=== PATIENT | male | born 1995 | race American Indian/Alaskan Native ===

== ENCOUNTER 2016-09-24 17:20 | Emergency (ER) | payer SELFPAY ==
[2016-09-24] MEDS ORDERED: PROVENTIL IH ONE ×2 (20:54→20:56)
[2016-09-24] MEDS ORDERED: DUONEB 0.5 MG-3 MG/3 ML SOLN IH ONE (20:56)
[2016-09-24] MEDS ORDERED: DECADRON IM ONE (20:56)
--- NOTE | 2016-09-24 21:11 | Emergency Department Report ---
ED Asthma HPI - General Chief Complaint: Upper Respiratory Infection Stated Complaint: NAUSEA/DIZZINESS/FATIGUE Time Seen by Provider: 09/24/16 20:49 Source: patient Mode of arrival: Ambulatory Limitations: No Limitations - History of Present Illness Initial Comments: Patient is a 20-year-old male presents to ED with complaints of shortness of breath, wheezing, cough for the past few days. Patient reports that he feels like his asthma is getting worse because of the pollen. Patient reports that he has breathing machine at home which she has been using without much relief. Relates that he does not have a albuterol inhaler and he may need that. Patient states right now he feels fine but when he goes outside, he begins to have more shortness of breath and wheezing due to pollen. MD Complaint: wheezing Onset/Timin -: Gradual, days(s) Severity: moderate Context: ran out of meds, allergen exposure Associated Symptoms: productive cough (yellow sputum ). denies: dry cough, chest pain, hemoptysis Treatments Prior to Arrival: inhaled bronchodilator - Related Data Previous Rx's Medication Instructions Recorded Last Taken Type ALBUTEROL Inhaler [ProAir HFA 2 puff IH QID PRN #1 inhalation 09/24/16 Unknown Rx Inhaler] Fluticasone [Flonase] 1 spray NS QDAY #1 bottle 09/24/16 Unknown Rx Loratadine 10 mg PO DAILY #30 tablet 09/24/16 Unknown Rx Allergies Allergy/AdvReac Type Severity Reaction Status Date / Time No Known Allergies Allergy Verified 09/24/16 18:16 ED Review of Systems ROS: Stated complaint: NAUSEA/DIZZINESS/FATIGUE Other details as noted in HPI Constitutional: denies: chills, fever Eyes: denies: eye pain, eye discharge, vision change ENT: denies: ear pain, throat pain Respiratory: cough, shortness of breath, wheezing Cardiovascular: denies: chest pain, palpitations Neurological: denies: headache, weakness, paresthesias Psychiatric: denies: anxiety, depression ED Past Medical Hx - Past Medical History Hx Psychiatric Treatment: Yes (ADHD) Hx Asthma: Yes - Surgical History Past Surgical History?: No - Social History Smoking Status: Current Every Day Smoker Substance Use Type: Alcohol - Medications Home Medications: Home Medications Medication Instructions Recorded Confirmed Last Taken Type ALBUTEROL Inhaler [ProAir HFA 2 puff IH QID PRN #1 inhalation 09/24/16 Unknown Rx Inhaler] Fluticasone [Flonase] 1 spray NS QDAY #1 bottle 09/24/16 Unknown Rx Loratadine 10 mg PO DAILY #30 tablet 09/24/16 Unknown Rx ED Physical Exam - General Limitations: No Limitations General appearance: alert, in no apparent distress - Head Head exam: Present: atraumatic, normocephalic - Eye Eye exam: Present: normal appearance - ENT ENT exam: Present: mucous membranes moist - Respiratory Respiratory exam: Present: normal lung sounds bilaterally, wheezes. Absent: respiratory distress, rales, rhonchi, stridor, chest wall tenderness, accessory muscle use, decreased breath sounds, prolonged expiratory - Cardiovascular Cardiovascular Exam: Present: regular rate, normal rhythm. Absent: systolic murmur, diastolic murmur, rubs, gallop - Neurological Exam Neurological exam: Present: alert, oriented X3 - Psychiatric Psychiatric exam: Present: normal affect, normal mood ED Course Vital Signs 09/24/16 09/24/16 09/24/16 18:22 21:37 22:09 Temperature 98.7 F Pulse Rate 54 L Pulse Rate [ 64 59 L Anterior Bilateral] Respiratory 18 Rate Respiratory 18 18 Rate [Anterior Bilateral] Blood Pressure 155/108 O2 Sat by Pulse 100 Oximetry ED Medical Decision Making - Medical Decision Making Patient is resting comfortably. Wheezing is better s/p breathing treatment. Will start patient on prednisone, Flonase, albuterol inhaler. Advised to return to ED for worsening symptoms or may follow with PCP in 2-3 days. Blood pressure noted to be a little elevated. Advised patient to keep recording the BP 2 or 3 times aweek and follow upw ith a PCP regarding it. - Differential Diagnosis asthma exacerbation, URI, bronchitis, postnasal drip. Critical care attestation.: If time is entered above; I have spent that time in minutes in the direct care of this critically ill patient, excluding procedure time. ED Disposition Clinical Impression: Asthma Qualifiers: Asthma severity: moderate persistent Asthma complication type: with acute exacerbation Qualified Code(s): J45.41 - Moderate persistent asthma with (acute ) exacerbation Disposition: DISCHARGED TO HOME OR SELFCARE Is pt being admited?: No Does the pt Need Aspirin: No Condition: Stable Instructions: Asthma (ED), Asthma in Children (ED) Prescriptions: ALBUTEROL Inhaler [ProAir HFA Inhaler] 2 puff IH QID PRN #1 inhalation PRN Reason: Shortness Of Breath Fluticasone [Flonase] 1 spray NS QDAY #1 bottle Loratadine 10 mg PO DAILY #30 tablet Referrals: PRIMARY CARE, [Primary Care Provider] - 3-5 Days Time of Disposition: 22:42
[2016-09-24] MEDS ORDERED: ATROVENT IH ONE ×3 (21:29→21:33)
[2016-09-24 22:53] VITALS: BP 151/97
== END 2016-09-24 22:51 | disposition home or self-care (01) ==
LOC: ED 17:20
DX: J45.41 Moderate persistent asthma with (acute) exacerbation (principal); F17.200 Nicotine dependence, unspecified, uncomplicated
CPT/HCPCS: 82962; 94644; 96372; 99283; J1100